=== PATIENT | female | born 1980 | race Two or more races ===

== ENCOUNTER 2018-07-05 11:45 | Observation (INO) | payer OTHER ==
[2018-07-05 12:19] VITALS: BMI 59.4
[2018-07-05] MEDS ORDERED: MECLIZINE HCL 25 MG TABLET (FP) PO ONE (12:30)
[2018-07-05] MEDS ORDERED: SODIUM CHLORIDE 1,000 ML IV SCH (12:30)
[2018-07-05] MEDS ORDERED: MECLIZINE HCL 25 MG TABLET (FP) ONE (12:45)
[2018-07-05 12:53] LABS: BASO % 0.4 % (0-2.0); EOS % 0.3 % (0-4.5); HEMATOCRIT 36.7 % (32.4-45.2); HEMOGLOBIN 12.2 GM/dL (10.7-15.3); LYMPH % 17.8 % (8-40); MCH 30.8 pg (25.7-33.7); MCHC 33.3 g/dl (32.0-36.0); MEAN CELL VOLUME 92.6 fl (80-96); MEAN PLT VOLUME 8.8 fl (7.5-11.1); MONO % 5.7 % (3.8-10.2); NEUT % 75.8 % (42.8-82.8); PLATELET COUNT 239 K/MM3 (134-434); RBC 3.96 M/mm3 (3.60-5.2); RDW 13.3 % (11.6-15.6); WHITE BLOOD COUNT 8.8 K/mm3 (4.0-10.0)
[2018-07-05 13:31] LABS: ALBUMIN 3.5 g/dl (3.4-5.0); ALK PHOS 30 U/L (45-117); ANION GAP 7 MMOL/L (8-16); BILIRUBIN,TOTAL 0.9 mg/dL (0.2-1); BLOOD UREA NITROGEN 12 mg/dL (7-18); CHLORIDE 108 mmol/L (98-107); CO2 24 mmol/L (21-32); CREATININE 0.8 mg/dL (0.55-1.3); GLUCOSE,RANDOM 75 mg/dL (74-106); POTASSIUM 4.9 mmol/L (3.5-5.1); SGOT/AST 12 U/L (15-37); SGPT/ALT 14 U/L (13-61); SODIUM 139 mmol/L (136-145); TOT PROT 7.1 g/dl (6.4-8.2)
--- NOTE | 2018-07-05 13:59 | PDOC ---
Documentation entered by Valarie Cox SCRIBE, acting as scribe for Meghan Tiwari MD. Meghan Tiwari MD: This documentation has been prepared by the Kenny torre Amanda, SCRIBE, under my direction and personally reviewed by me in its entirety. I confirm that the documentation accurately reflects all work, treatment, procedures, and medical decision making performed by me. History of Present Illness - General Chief Complaint: Lightheaded Stated Complaint: Syncope/Near Syncope Time Seen by Provider: 07/05/18 11:59 History Source: Patient, Friend Exam Limitations: No Limitations - History of Present Illness Initial Comments: 07/05/18 12:35 The patient is a 38 year old female, with a significant past medical history of vertigo (uses meclizine as needed) who presents to the emergency department s/p syncopal episode today with complaint of 2 days with dizziness. The patient states she took her meclizine yesterday without relief of her dizziness. She states she feels as if the room is spinning which is exacerbated by looking in various directions. She states she was walking to the kitchen when she felt a sudden "garcia" and dropped to the hardwood floor. The patient's friend at bedside was in the shower, however, the friend's son witnessed the syncopal episode and denies head trauma. The patient reports left foot pain s/p fall and continued dizziness. The patient denies chest pain, shortness of breath, headache. The patient denies fever, chills, nausea, vomit, diarrhea and constipation. The patient denies dysuria, frequency, urgency and hematuria. Allergies: NKDA Past surgical history: left knee arthroscopy Social history: denies tobacco or ETOH Past History - Past Medical History Allergies/Adverse Reactions: Allergies Allergy/AdvReac Type Severity Reaction Status Date / Time No Known Allergies Allergy Verified 07/05/18 12:19 Home Medications: Ambulatory Orders Ascorbate Calcium [Vitamin C] 0 mg PO DAILY 07/05/18 Cyanocobalamin (Vitamin B-12) [Vitamin B12] 0 mcg PO DAILY 07/05/18 Meclizine HCl [Antivert -] 50 mg PO TID 07/05/18 Zinc 0 mg PO DAILY 07/05/18 Diazepam [Valium] 2 mg PO HS #3 tablet MDD 2 mg 07/06/18 Anemia: Yes Asthma: No Cancer: No Cardiac Disorders: No CVA: No COPD: No - Immunization History Immunization Up to Date: Yes - Suicide/Smoking/Psychosocial Hx Smoking History: Never smoked Have you smoked in the past 12 months: No Hx Alcohol Use: No Drug/Substance Use Hx: No Review of Systems - Review of Systems Able to Perform ROS?: Yes Comments:: 07/05/18 12:38 CONSTITUTIONAL: Absent: fever, no chills, no fatigue EYES: Absent: visual changes ENT: Absent: ear pain, no sore throat CARDIOVASCULAR: Absent: chest pain, no palpitations RESPIRATORY: Absent: cough, no SOB GASTROINTESTINAL: Absent: abdominal pain, no nausea, no vomiting, no constipation, no diarrhea GENITOURINARY: Absent: dysuria, no frequency, no hematuria MUSCULOSKELETAL: Absent: back pain, no arthralgia, no myalgia SKIN: Absent: rash NEURO: (+) Dizziness. Absent: headache *Physical Exam - Vital Signs Last Vital Signs Temp Pulse Resp BP Pulse Ox 98.2 F 76 20 105/69 100 07/05/18 12:12 07/05/18 12:12 07/05/18 12:12 07/05/18 12:12 07/05/18 12:12 - Physical Exam Comments: 07/05/18 12:39 GENERAL: The patient is in no acute distress. +Tearful HEAD: Normal with no signs of trauma. EYES: PERRLA, EOMI, sclera anicteric, conjunctiva clear. ENT: (+) right horizontal nystagmus. Ears normal, nares patent, oropharynx clear without exudates. Moist mucous membranes. NECK: Normal range of motion, supple without lymphadenopathy, JVD, or masses. LUNGS: Breath sounds equal, clear to auscultation bilaterally. No wheezes, and no crackles. HEART:Regular rate and rhythm, normal S1 and S2 without murmur, rub or gallop. ABDOMEN: Soft, nontender, normoactive bowel sounds. No guarding, no rebound. No masses palpable. EXTREMITIES: Normal range of motion, no edema. No clubbing or cyanosis. No erythema, or tenderness. NEUROLOGICAL: Cranial nerves II through XII grossly intact. Normal speech. No focal neurological deficits. MUSCULOSKELETAL: Back non-tender to palpation, no CVA tenderness SKIN: Warm, Dry, normal turgor, no rashes or lesions noted. ED Treatment Course - LABORATORY CBC & Chemistry Diagram: 07/06/18 06:35 07/06/18 06:35 - ADDITIONAL ORDERS Additional order review: Laboratory Results 07/05/18 12:40 Serum , Qual Negative 07/05/18 12:30 RBC 3.96 MCV 92.6 MCHC 33.3 RDW 13.3 MPV 8.8 Neutrophils % 75.8 Lymphocytes % 17.8 Monocytes % 5.7 Eosinophils % 0.3 Basophils % 0.4 - RADIOLOGY Radiology Studies Ordered: Category Date Time Status HEAD CT WITHOUT CONTRAST [CT] Stat CT Scan 07/05/18 12:30 Ordered - Medications Given in the ED: ED Medications Discontinued Medications Generic Name Dose Route Start Last Admin Trade Name Josefq PRN Reason Stop Dose Admin Meclizine HCl 25 mg 07/05/18 12:30 07/05/18 12:50 Antivert - PO 07/05/18 12:31 25 mg ONCE ONE Administration Medical Decision Making - Medical Decision Making 07/05/18 13:18 38 yo F h/o vertigo presenting to the ER with a complaint of syncope Pt noted vertigo yesterday, typically this is episodic and intermittent This time, her vertigo has persisted despite Meclizine yesterday While at home today, she noted that she felt a garcia and syncopized Friend's son was present and responded immediately when she fell She was NOT noted to have any rhythmic shaking of the arms or legs Pt unresponsive for 1 minute No post ictal state Pt denies chest pain, headache, neck pain Pt denies shortness of breath EKG - NSR rate of 62 bpm, axis nml, intervals nml, no st elevation or depression DD: Vasovagal syncope, vertigo (likely peripheral - BPPV, Labrynthitis, Meniere's dz ) Will do: Labs EKG IV hydration Meclizine 07/05/18 14:54 Laboratory Tests 07/05/18 07/05/18 07/05/18 12:30 12:40 12:40 WBC 8.8 Hgb 12.2 Hct 36.7 Plt Count 239 BUN 12 Creatinine 0.8 Creatine Kinase 41 Troponin I < 0.02 Serum , Qual Negative CT - No mass lesion, no gross infarct, no intracranial hemorrhage Pt continue to have vertigo Will give ativan Will re assess 07/05/18 16:[address] on observation *DC/Admit/Observation/Transfer Diagnosis at time of Disposition: Vertigo, Syncope and collapse - Discharge Dispostion Condition at time of disposition: Improved Decision to Admit order: Yes - Referrals - Patient Instructions - Post Discharge Activity
[2018-07-05] MEDS ORDERED: LORazepam 2 MG/ML SDV VIAL ONE (15:07)
--- NOTE | 2018-07-05 15:13 | EKG ---
Test Reason : Blood Pressure : / mmHG Vent. Rate : 062 BPM Atrial Rate : 062 BPM P-R Int : 118 ms QRS Dur : 090 ms QT Int : 398 ms P-R-T Axes : 009 056 037 degrees QTc Int : 403 ms NORMAL SINUS RHYTHM NORMAL ECG NO PREVIOUS ECGS AVAILABLE Confirmed by ROSCOE MENEZES, AMAIRANI ([id number]) on 07/05/2018 3:12:44 PM Referred By: Confirmed By:AMAIRANI MALHORTA MD
--- NOTE | 2018-07-05 16:45 | HP ---
CHIEF COMPLAINT: vertigo, syncope PCP: HISTORY OF PRESENT ILLNESS: 38 year old woman with Hx of vertigo c/o worsening vertigo+ witnessed syncope today. She reports worsening vertigo when moving her head and improvement of symptoms a rest. Some nausea, no vomiting. NO history of head trauma. Little to no response to meclizine. Pt also reported syncope episode earlier today when she was standing up from her bed. Witnessed by friend . Denied any head trauma. Syncopal episode lasted a few seconds. ER course was notable for: (1) head CT (2) ekg (3) IV fluid Recent Travel: no PAST MEDICAL HISTORY: - vertigo, s/p recent course of metronidazole for "vaginal infection" PAST SURGICAL HISTORY: left knee arthroscopy surgery one month ago Social History: Smoking:no Alcohol:no Drugs: no Family History: sister with DM Allergies No Known Allergies Allergy (Verified 07/05/18 12:19) HOME MEDICATIONS: Home Medications Medication Instructions Recorded Ascorbate Calcium [Vitamin C] 0 mg PO DAILY 07/05/18 Cyanocobalamin (Vitamin B-12) 0 mcg PO DAILY 07/05/18 [Vitamin B12] Meclizine HCl [Antivert -] 50 mg PO TID 07/05/18 Zinc 0 mg PO DAILY 07/05/18 REVIEW OF SYSTEMS CONSTITUTIONAL: Absent: fever, chills, diaphoresis, generalized weakness, malaise, loss of appetite, weight change HEENT: Absent: rhinorrhea, nasal congestion, throat pain, throat swelling, difficulty swallowing, mouth swelling, ear pain, eye pain, visual changes CARDIOVASCULAR: Absent: chest pain, syncope, palpitations, irregular heart rate, lightheadedness , peripheral edema RESPIRATORY: Absent: cough, shortness of breath, dyspnea with exertion, orthopnea, wheezing, stridor, hemoptysis GASTROINTESTINAL: Absent: abdominal pain, abdominal distension, nausea, vomiting, diarrhea, constipation, melena, hematochezia GENITOURINARY: Absent: dysuria, frequency, urgency, hesitancy, hematuria, flank pain, genital pain MUSCULOSKELETAL: Absent: myalgia, arthralgia, joint swelling, back pain, neck pain SKIN: Absent: rash, itching, pallor HEMATOLOGIC/IMMUNOLOGIC: Absent: easy bleeding, easy bruising, lymphadenopathy, frequent infections ENDOCRINE: Absent: unexplained weight gain, unexplained weight loss, heat intolerance, cold intolerance NEUROLOGIC: Absent: headache, focal weakness or paresthesias, unsteady gait, seizure, mental status changes, bladder or bowel incontinence present- vertigo, dizziness, syncope PSYCHIATRIC: Absent: anxiety, depression, suicidal or homicidal ideation, hallucinations. PHYSICAL EXAMINATION Vital Signs - 24 hr 07/05/18 07/05/18 07/05/18 12:12 12:25 15:24 Temperature 98.2 F 98.2 F Pulse Rate 76 Pulse Rate [ 72 64 Apical] Respiratory 20 20 18 Rate Blood Pressure 105/69 Blood Pressure 105/69 101/69 [Left Arm] O2 Sat by Pulse 100 100 99 Oximetry (%) 07/05/18 16:43 Temperature Pulse Rate Pulse Rate [ 60 Apical] Respiratory Rate Blood Pressure Blood Pressure 101/59 L [Left Arm] O2 Sat by Pulse Oximetry (%) GENERAL: Awake, alert, and fully oriented, appears drowsy HEAD: Normal with no signs of trauma. EYES: Pupils equal, round and reactive to light, extraocular movements intact, sclera anicteric, conjunctiva clear. No lid lag. EARS, NOSE, THROAT: Ears normal, nares patent, oropharynx clear without exudates. Moist mucous membranes. NECK: Normal range of motion, supple without lymphadenopathy, JVD, or masses. LUNGS: Breath sounds equal, clear to auscultation bilaterally. No wheezes, and no crackles. No accessory muscle use. HEART: Regular rate and rhythm, normal S1 and S2 without murmur, rub or gallop. ABDOMEN: Soft, nontender, not distended, normoactive bowel sounds, no guarding, no rebound, no masses. MUSCULOSKELETAL: Normal range of motion at all joints. No bony deformities or tenderness. No CVA tenderness. UPPER EXTREMITIES: 2+ pulses, warm, well-perfused. No cyanosis. No clubbing. No peripheral edema. LOWER EXTREMITIES: 2+ pulses, warm, well-perfused. No calf tenderness. No peripheral edema. NEUROLOGICAL: Cranial nerves II-XII intact. Normal speech. good handgrip b/l, motor 5/5 in all extremities PSYCHIATRIC: Cooperative. Good eye contact. Appropriate mood and affect. SKIN: Warm, dry, normal turgor, no rashes or lesions noted, normal capillary refill. Laboratory Results - last 24 hr 07/05/18 07/05/18 07/05/18 12:30 12:40 12:40 WBC 8.8 RBC 3.96 Hgb 12.2 Hct 36.7 MCV 92.6 MCH 30.8 MCHC 33.3 RDW 13.3 Plt Count 239 MPV 8.8 Absolute Neuts (auto) 6.6 Neutrophils % 75.8 Lymphocytes % 17.8 Monocytes % 5.7 Eosinophils % 0.3 Basophils % 0.4 Nucleated RBC % 0 Sodium 139 Potassium 4.9 Chloride 108 H Carbon Dioxide 24 Anion Gap 7 L BUN 12 Creatinine 0.8 Creat Clearance w eGFR 80.71 Random Glucose 75 Calcium 9.0 Total Bilirubin 0.9 AST 12 L ALT 14 Alkaline Phosphatase 30 L Creatine Kinase 41 Troponin I < 0.02 Total Protein 7.1 Albumin 3.5 Serum , Qual Negative Head CT reviewed EKG reviewed ASSESSMENT/PLAN: #Vertigo- acute on chronic, likely BPPV as it's related to movement of head. Doubt posterior CVA as patient is quite young as lacks risk factors #Syncope -likely orthostatic vs vasovagal. -tele-observation -zofran IVPB prn if nausea or vomiting -meclizine prn -neuro evaluation -brain MRI to r/o posterior CVA -check orthostatics -Mayco hallpike maneuver -bed rest -fall precautions -DVT ppx - SCDs Visit type - Emergency Visit Emergency Visit: Yes ED Registration Date: 07/05/18 Care time: The patient presented to the Emergency Department on the above date and was hospitalized for further evaluation of their emergent condition. - New Patient This patient is new to me today: Yes Date on this admission: 07/05/18 - Critical Care Critical Care patient: No
[2018-07-05] MEDS ORDERED: MECLIZINE HCL 25 MG TABLET (FP) PO PRN (17:11)
[2018-07-05] MEDS ORDERED: ACETAMINOPHEN 325 MG TABLET (FP) PO PRN (20:22)
[2018-07-05] MEDS ORDERED: ACETAMINOPHEN 325 MG TABLET (FP) ONE (20:27)
[2018-07-06 07:45] LABS: HEMATOCRIT 32.3 % (32.4-45.2); HEMOGLOBIN 10.9 GM/dL (10.7-15.3); MCHC 33.8 g/dl (32.0-36.0); MEAN CELL VOLUME 91.7 fl (80-96); PLATELET COUNT 231 K/MM3 (134-434); RBC 3.52 M/mm3 (3.60-5.2); RDW 13.3 % (11.6-15.6); WHITE BLOOD COUNT 6.1 K/mm3 (4.0-10.0)
[2018-07-06 08:09] LABS: ANION GAP 5 MMOL/L (8-16); BLOOD UREA NITROGEN 15 mg/dL (7-18); CALCIUM 8.4 mg/dL (8.5-10.1); CHLORIDE 111 mmol/L (98-107); CO2 25 mmol/L (21-32); CREATININE 0.7 mg/dL (0.55-1.3); GLUCOSE,RANDOM 65 mg/dL (74-106); POTASSIUM 4.6 mmol/L (3.5-5.1); SODIUM 141 mmol/L (136-145)
--- NOTE | 2018-07-06 09:16 | CON.NEURO ---
Consult Consult Specialty:: NEUROLOGY-MARCELLA MENEZES - History of Present Illness History of Present Illness: 38 year old woman with Hx of vertigo c/o worsening vertigo+ witnessed syncope today. She reports worsening vertigo when moving her head and improvement of symptoms a rest. Some nausea, no vomiting. NO history of head trauma. Little to no response to meclizine. Pt also reported syncope episode earlier today when she was standing up from her bed right after episode of vertigo. Witnessed by friend . Denied any head trauma. Syncopal episode lasted a 20 seconds. Describes similar vertigo a few weeks ago, was told by ENT it was due to "ear infection", denies tinnitus/other neurologic symptoms. ER course was notable for: (1) head CT (2) ekg (3) IV fluid Recent Travel: no PAST MEDICAL HISTORY: - vertigo, s/p recent course of metronidazole for "vaginal infection" - Alcohol/Substance Use Hx Alcohol Use: No - Smoking History Smoking history: Never smoked Have you smoked in the past 12 months: No Home Medications - Allergies Allergies/Adverse Reactions: Allergies Allergy/AdvReac Type Severity Reaction Status Date / Time No Known Allergies Allergy Verified 07/05/18 12:19 - Home Medications Home Medications: Ambulatory Orders Ascorbate Calcium [Vitamin C] 0 mg PO DAILY 07/05/18 Cyanocobalamin (Vitamin B-12) [Vitamin B12] 0 mcg PO DAILY 07/05/18 Meclizine HCl [Antivert -] 50 mg PO TID 07/05/18 Zinc 0 mg PO DAILY 07/05/18 Physical Exam-Neuro Vital Signs: Vital Signs Temperature 99.0 F 07/06/18 08:08 Pulse Rate 68 07/06/18 08:08 Respiratory Rate 16 07/06/18 08:08 Blood Pressure 97/53 L 07/06/18 08:08 O2 Sat by Pulse Oximetry (%) 97 07/06/18 08:08 Labs: CBC, BMP 07/06/18 06:35 07/06/18 06:35 - Neuro Exam DTR's: 2+ Left Bicep, 2+ Right Bicep, 2+ Left Tricep, 2+ Right Tricep, 2+ Left Brachioradialis, 2+ Right Brachioradialis, 2+ Left Achilles, 2+ Right Achilles Motor Strength: 5/5: Left Arm, Right Arm, Left Leg, Right Leg Imaging - Results MRI: Report Reviewed (Without abn) Assessment/Plan Pt. with transient vertigo followed by syncope-likely vasovagal. Vertigo appears to be peripheral/ triggered by left ear inf.that is now resolved. She has minimal positional vertigo. Imaging without abn. Suggest: [id number] hs x 3 days to treat vertigo symptomatically. Lasix 10mg x1 now to possibly reduce labrynthine edema- helps sometimes anecdotally. Pt. may be discharged , please request her to follow in my office-[phone]. Thank you, Óscar Bee MD
--- NOTE | 2018-07-06 12:08 | DS ---
Physical Exam: SUBJECTIVE: Patient seen and examined. dizzyness significantly improved. denies CP, SOB, fever, chills, N/V/C/D was given meclizine in the past which she took once and then didnt have symptoms again. OBJECTIVE: Vital Signs Period Temp Pulse Resp BP Sys/Ribeiro Pulse Ox Last 24 Hr 98.2 F-99.8 F 60-76 16-20 93-105/53-69 97-100 PHYSICAL EXAM GENERAL: The patient is awake, alert, and fully oriented, in no acute distress. HEAD: Normal with no signs of trauma. EYES: PERRL, extraocular movements intact, sclera anicteric, conjunctiva clear. no nystagmus ENT: Ears normal, nares patent, oropharynx clear without exudates, moist mucous membranes. NECK: Trachea midline, full range of motion, supple. LUNGS: Breath sounds equal, clear to auscultation bilaterally, no wheezes, no crackles, no accessory muscle use. HEART: Regular rate and rhythm, S1, S2 without murmur, rub or gallop. ABDOMEN: Soft, nontender, nondistended, normoactive bowel sounds, no guarding, no rebound, no hepatosplenomegaly, no masses. EXTREMITIES: 2+ pulses, warm, well-perfused, no edema. NEUROLOGICAL: Cranial nerves II through XII grossly intact. Normal speech, gait not observed. PSYCH: Normal mood, normal affect. SKIN: Warm, dry, normal turgor, no rashes or lesions noted. LABS Laboratory Results - last 24 hr 07/05/18 07/05/18 07/05/18 12:30 12:40 12:40 WBC 8.8 RBC 3.96 Hgb 12.2 Hct 36.7 MCV 92.6 MCH 30.8 MCHC 33.3 RDW 13.3 Plt Count 239 MPV 8.8 Absolute Neuts (auto) 6.6 Neutrophils % 75.8 Lymphocytes % 17.8 Monocytes % 5.7 Eosinophils % 0.3 Basophils % 0.4 Nucleated RBC % 0 Sodium 139 Potassium 4.9 Chloride 108 H Carbon Dioxide 24 Anion Gap 7 L BUN 12 Creatinine 0.8 Creat Clearance w eGFR 80.71 Random Glucose 75 Calcium 9.0 Total Bilirubin 0.9 AST 12 L ALT 14 Alkaline Phosphatase 30 L Creatine Kinase 41 Troponin I < 0.02 Total Protein 7.1 Albumin 3.5 Serum , Qual Negative 07/06/18 07/06/18 06:35 06:35 WBC 6.1 RBC 3.52 L Hgb 10.9 Hct 32.3 L MCV 91.7 MCH 31.0 MCHC 33.8 RDW 13.3 Plt Count 231 MPV 9.0 Absolute Neuts (auto) Neutrophils % Lymphocytes % Monocytes % Eosinophils % Basophils % Nucleated RBC % Sodium 141 Potassium 4.6 Chloride 111 H Carbon Dioxide 25 Anion Gap 5 L BUN 15 Creatinine 0.7 Creat Clearance w eGFR 94.16 Random Glucose 65 L Calcium 8.4 L Total Bilirubin AST ALT Alkaline Phosphatase Creatine Kinase Troponin I Total Protein Albumin Serum , Qual HOSPITAL COURSE: Date of Admission:07/05/18 Date of Discharge: 07/06/18 Admitting diagnosis: Vertigo Pre hospital course 38 year old woman with Hx of vertigo c/o worsening vertigo+ witnessed syncope today. She reports worsening vertigo when moving her head and improvement of symptoms a rest. Some nausea, no vomiting. NO history of head trauma. Little to no response to meclizine. Pt also reported syncope episode earlier today when she was standing up from her bed. Witnessed by friend . Denied any head trauma. Syncopal episode lasted a few seconds. Subsequent hospital course Medicine observation. symptoms improved with ativan IV. head CT and brain MRI were negative. seen by neuro. d/c with valium x 3days. answered all questions Minutes to complete discharge: 40 Discharge Summary Reason For Visit: SYNCOPE AND COLLAPSE/VERTIGO Current Active Problems Syncope and collapse (Acute) Vertigo (Acute) Condition: Improved - Instructions Diet, Activity, Other Instructions: You were observed in the hospital because of vertigo. All work up has been negative. You are being discharged with valium which should help with your symptoms. PLease take at bedtime. Follow up with your primary care doctor in 1 week Follow up with the neurologist for further testing and treatment Return to the hospital if your symptoms return, if you pass out again or if you develop chest pain Referrals: Flower Bee MD [Staff Physician] - Disposition: HOME - Home Medications Comprehensive Discharge Medication List: Ambulatory Orders Ascorbate Calcium [Vitamin C] 0 mg PO DAILY 07/05/18 Cyanocobalamin (Vitamin B-12) [Vitamin B12] 0 mcg PO DAILY 07/05/18 Meclizine HCl [Antivert -] 50 mg PO TID 07/05/18 Zinc 0 mg PO DAILY 07/05/18 Diazepam [Valium] 2 mg PO HS #3 tablet MDD 2 mg 07/06/18 This patient is new to me today: Yes Date on this admission: 07/06/18 Emergency Visit: Yes ED Registration Date: 07/05/18 Care time: The patient presented to the Emergency Department on the above date and was hospitalized for further evaluation of their emergent condition. Critical Care patient: No - Discharge Referral Referred to [facility] No
[2018-07-06 13:55] VITALS: BP 115/65; PULSE 85; TEMP 98.6
== END 2018-07-06 13:59 | disposition home or self-care (01) ==
LOC: JER 11:45 → JERBED 16:48
PROVIDERS: ADMIT Internal Medicine; ATTEND Internal Medicine
PROC: 3E0337Z Introduction of Electrolytic and Water Balance Substance into Peripheral Vein, Percutaneous Approach (ICD-10-PCS; principal; 2018-07-05)
PROC: 3E033GC Introduction of Other Therapeutic Substance into Peripheral Vein, Percutaneous Approach (ICD-10-PCS; 2018-07-05)
DX: R55 Syncope and collapse (principal); R42 Dizziness and giddiness; D64.9 Anemia, unspecified
CPT/HCPCS: 36415; 70450-TC; 70551-TC; 80048; 80053; 82550; 84484; 84703; 85025; 85027; 93005; 93010; 99285-25; G0378; J7030